=== PATIENT | male | born 1965 | race Caucasian/White ===

== ENCOUNTER 2018-08-05 16:18 | Inpatient (IN) | payer SELFPAY, OTHER | END 2018-08-10 13:14 | disposition home or self-care (01) | LOC: ED 16:18 → MU 22:50 → ED 16:18 → MU 22:50 → ED 16:18 → MU 22:50 → ED 16:18 → MU 22:50 → ED 16:18 → MU 22:50 | DX: K56.609 Unspecified intestinal obstruction, unspecified as to partial versus complete obstruction (principal); N17.0 Acute kidney failure with tubular necrosis; K59.00 Constipation, unspecified; Z72.89 Other problems related to lifestyle ==